=== PATIENT | female | born 1980 | race Caucasian/White ===

== ENCOUNTER 2017-03-20 15:13 | Emergency (ER) | payer SELFPAY ==
[2017-03-20] MEDS ORDERED: Ibuprofen 200 MG TAB ONE (17:49)
== END 2017-03-20 18:05 | disposition home or self-care (01) ==
LOC: ERS 15:13
DX: J11.1 Influenza due to unidentified influenza virus with other respiratory manifestations (principal); E11.9 Type 2 diabetes mellitus without complications
CPT/HCPCS: 99283

== ENCOUNTER 2017-03-24 06:39 | Emergency (ER) | payer SELFPAY ==
--- NOTE | 2017-03-24 08:12 | RAD ---
TWO VIEW CHEST SERIES: INDICATIONS: Chest pain. Recent diagnosis of flu. COMPARISON: 06/02/2014 FINDINGS: The lungs are clear. No effusion or pneumothorax. The cardiac silhouette is within normal limits in size. IMPRESSION: No focal consolidation. POS: [facility]
== END 2017-03-24 07:39 | disposition home or self-care (01) ==
LOC: ERS 06:39
DX: J11.1 Influenza due to unidentified influenza virus with other respiratory manifestations (principal); I10 Essential (primary) hypertension; E11.9 Type 2 diabetes mellitus without complications; Z79.84 Long term (current) use of oral hypoglycemic drugs
CPT/HCPCS: 71046; 93005

== ENCOUNTER 2022-04-29 14:02 | Inpatient (IN) | payer BC, SELFPAY ==
[~2022-04-29 14:02] MED LIST: Iopamidol-370 76% 500 ML 1 ML ONE
[2022-04-29] MEDS ORDERED: Ondansetron PF 4 MG/2 ML Vial ONE (14:48)
[2022-04-29] MEDS ORDERED: Acetaminophen 500 MG TAB ONE (14:48)
[2022-04-29 14:59] LABS: Hemoglobin 12.7 g/dL (12.0-16.0); Mean Corpuscular HGB CONC 33.7 g/dL (32.0-36.0); Mean Corpuscular Hemoglobin 31.1 pg (27.0-31.0); Mean Corpuscular Volume 92.2 fl (78.0-98.0); Mean Platelet Volume 7.4 fL (7.4-10.4); Platelet Count 327 10x3/uL (130-400); RBC Distribution Width 11.2 % (11.5-14.5); Red Blood Cell (RBC) Count 4.08 mill/uL (4.20-5.40); White Blood Cell (WBC) Count 15.7 10x3/uL (4.8-10.8)
[2022-04-29 14:59] LABS: Bacteria/HPF 2+ HPF (None Seen); Bilirubin Negative (Negative); Blood, Urine 3+ (Negative); Glucose, Urine (Dipstick) Greater than 1000 mg/dL (Negative); Ketone, Urine 40 mg/dL (Negative); Leukocyte 500 Leu/uL (Negative); Nitrite 1+ (Negative); Protein, Urine (Dipstick) 300 mg/dL (Neg-Trace); Specific Gravity, Urine 1.023 (1.002-1.036); Squamous Epithelial 0-3 HPF (0-3); Urobilinogen Normal mg/dL (Less than 2); WBC/HPF Greater than 50 HPF (0-3)
[2022-04-29 15:02] LABS: Clarity Turbid (Clear)
[2022-04-29 15:09] LABS: ALT (SGPT) 26 U/L (8-55); AST (SGOT) 33 U/L (5-34); Albumin 3.6 g/dL (3.5-5.0); Alkaline Phosphatase 119 U/L (40-110); Anion Gap 16 mmol/L (10-20); BUN (Urea Nitrogen) 10 mg/dL (7.0-18.7); Bilirubin, Total 1.3 mg/dL (0.2-1.2); Calc. Creatinine Clearance 0 mL/min (70-130); Calcium 8.8 mg/dL (7.8-10.44); Carbon Dioxide 23 mmol/L (22-29); Chloride 94 mmol/L (98-107); Estimated GFR 83; Globulin 4.1 g/dL (2.4-3.5); Glucose 320 mg/dL (70-105); Lipase 19 U/L (8-78); Potassium 3.2 mmol/L (3.5-5.1); Protein, Total 7.7 g/dL (6.0-8.3); Sodium 130 mmol/L (136-145)
[2022-04-29 15:15] LABS: Band 10 % (5-11); Lymphocytes 10 % (21-51); MDiff Complete? YES; Monocytes 8 % (0-10); Neutrophil 72 % (42-75); Platelet Morphology Comment Appears Adequate; Polychromasia SLIGHT = 2-3 cells (100X) (0-2/hpf)
[2022-04-29 15:32] LABS: SARS-CoV-2 NAA Rapid Test Not Detected (NotDetected)
[2022-04-29] MEDS ORDERED: cefTRIAXone\\ROCEPHIN 2 GM VIAL ONE (15:43)
[2022-04-29] MEDS ORDERED: Potassium Chloride 20 MEQ TAB ONE (16:00)
[2022-04-29] MEDS ORDERED: Vancomycin 1.5 GRAM/300 ML BAG 1.5 GM in Premix Bag 1 BAG IVPB SCH (16:30)
[2022-04-29 16:46] LABS: Pregnancy Test - Urine (BHCG) Negative (Negative); Pregu Control Background? CLEAR/WHITE (CLR/WHITE); Pregu Control Bar Appear? YES (CONTROL BAR); Specific Gravity 1.023 (1.002-1.036)
[2022-04-29] MEDS ORDERED: Ondansetron PF 4 MG/2 ML Vial IVP PRN ×2 (18:36→19:00)
[2022-04-29] MEDS ORDERED: Ondansetron ODT 4 MG TAB PO PRN (18:36)
[2022-04-29] MEDS ORDERED: Acetaminophen 650 MG Suppository PR PRN (18:36)
[2022-04-29] MEDS ORDERED: Dextrose 5% in Water 1,000 ML IV PRN (18:41)
[2022-04-29] MEDS ORDERED: Dextrose 50% Abboject 50 ML SYRINGE SLOW IVP PRN (18:41)
[2022-04-29] MEDS ORDERED: Benzonatate 100 MG CAP PO PRN (18:42)
[2022-04-29] MEDS ORDERED: Sodium Chloride 0.9% 1,000 ML IV SCH ×2 (18:45→19:00)
[2022-04-29] MEDS ORDERED: Electrolyte Replacement Protocol 1 EACH FS SCH (18:45)
[2022-04-29] MEDS ORDERED: Acetaminophen 325 MG TAB PO PRN (19:00)
[2022-04-29] MEDS ORDERED: Ondansetron ODT 4 MG TAB SL PRN (19:00)
[2022-04-29] MEDS: Acetaminophen 325 MG TAB PO PRN (19:30)
[2022-04-29 19:47] VITALS: BMI 50.8
[2022-04-29] MEDS: Famotidine/PF 20 mg/2ml Vial SLOW IVP SCH (20:40)
[2022-04-29] MEDS: HumaLOG 300 UNITS/3 ML VIAL SC PRN (20:41)
[2022-04-29] MEDS ORDERED: Vancomycin HCl 750 MG in Sodium Chloride 0.9% 250 ML 250 ML IVPB SCH (21:00)
[2022-04-29] MEDS ORDERED: Ketorolac Tromethamine 30 MG/ML VIAL IVP SCH (21:30)
[2022-04-29] MEDS ORDERED: Vancomycin 1 GM in Premix Bag 1 BAG IVPB SCH (23:00)
[2022-04-29] MEDS ORDERED: Acetaminophen 500 MG TAB PO SCH (23:30)
[2022-04-30] MEDS: VANCOMYCIN 2 GRAM/500 ML BAG 2 GM in Premix Bag 1 BAG IVPB SCH ×2 (05:19→19:04)
[2022-04-30] MEDS: HumaLOG 300 UNITS/3 ML VIAL SC PRN ×4 (05:20→20:12)
[2022-04-30 05:35] LABS: Hemoglobin A1c 9.2 % (4.0-6.0)
[2022-04-30 05:39] LABS: Hemoglobin 11.5 g/dL (12.0-16.0); Mean Corpuscular HGB CONC 33.1 g/dL (32.0-36.0); Mean Corpuscular Hemoglobin 30.9 pg (27.0-31.0); Mean Corpuscular Volume 93.5 fl (78.0-98.0); Mean Platelet Volume 7.8 fL (7.4-10.4); Platelet Count 266 10x3/uL (130-400); RBC Distribution Width 11.3 % (11.5-14.5); Red Blood Cell (RBC) Count 3.73 mill/uL (4.20-5.40); White Blood Cell (WBC) Count 12.3 10x3/uL (4.8-10.8)
[2022-04-30 06:00] LABS: Anion Gap 14 mmol/L (10-20); BUN (Urea Nitrogen) 13 mg/dL (7.0-18.7); Calc. Creatinine Clearance 194 mL/min (70-130); Calcium 8.4 mg/dL (7.8-10.44); Carbon Dioxide 24 mmol/L (22-29); Cardiac Risk 7.3 (Less than 4.5); Chloride 101 mmol/L (98-107); Cholesterol 139 mg/dl (< 200 Desired); Estimated GFR 101; Glucose 281 mg/dL (70-105); HDL Cholesterol 19 mg/dL (>60 Neg Risk); LDL Cholesterol, Calculated 94 mg/dL; Potassium 3.7 mmol/L (3.5-5.1); Sodium 135 mmol/L (136-145); Triglycerides 132 mg/dL (Less than 150)
[2022-04-30 06:06] LABS: Band 22 % (5-11); Lymphocytes 19 % (21-51); MDiff Complete? YES; Monocytes 5 % (0-10); Neutrophil 54 % (42-75)
[2022-04-30] MEDS: Acetaminophen 325 MG TAB PO PRN ×4 (07:37→19:48)
[2022-04-30] MEDS ORDERED: Magnesium 2 GM/50 ML(in water) 2 GM in Premix Bag 1 BAG IVPB SCH (08:00)
[2022-04-30] MEDS: Famotidine/PF 20 mg/2ml Vial SLOW IVP SCH ×2 (08:21→19:48)
[2022-04-30] MEDS: Hydrochlorothiazide 25 MG TAB PO SCH (08:21)
[2022-04-30] MEDS ORDERED: FLU VACC QS2022-23(6MOS UP)/PF 60 MCG/0.5 ML SYRINGE IM ONE (09:00)
[2022-04-30] MEDS: Guaifenesin DM 100-10/5 ML UDCUP PO PRN (13:37)
[2022-04-30] MEDS ORDERED: cefTRIAXone\\ROCEPHIN 1 GM in Sodium Chloride 0.9% 100 ML IVPB SCH (18:45)
[2022-05-01] MEDS: Guaifenesin DM 100-10/5 ML UDCUP PO PRN ×2 (00:14→06:19)
[2022-05-01 06:04] LABS: Vancomycin, Trough 10.4 ug/mL
[2022-05-01] MEDS: VANCOMYCIN 2 GRAM/500 ML BAG 2 GM in Premix Bag 1 BAG IVPB SCH (06:16)
[2022-05-01] MEDS: HumaLOG 300 UNITS/3 ML VIAL SC PRN (06:16)
[2022-05-01] MEDS: Hydrochlorothiazide 25 MG TAB PO SCH (08:44)
[2022-05-01] MEDS: Famotidine/PF 20 mg/2ml Vial SLOW IVP SCH (08:44)
[2022-05-01 11:37] VITALS: BP 150/86; TEMP 98.5
[2022-05-01] MEDS ORDERED: VANCOMYCIN 2 GRAM/500 ML BAG 2 GM in Premix Bag 1 BAG IVPB SCH (14:00)
== END 2022-05-01 11:48 | disposition home or self-care (01) | DRG 872 ==
LOC: ERS 14:02 → T4-A 17:13
PROVIDERS: ADMIT Internal Medicine; ATTEND Internal Medicine
DX: A41.51 Sepsis due to Escherichia coli [E. coli] (principal); N39.0 Urinary tract infection, site not specified; E87.1 Hypo-osmolality and hyponatremia; Z68.43 Body mass index [BMI] 50.0-59.9, adult; J06.9 Acute upper respiratory infection, unspecified; F41.9 Anxiety disorder, unspecified; E11.65 Type 2 diabetes mellitus with hyperglycemia; E66.01 Morbid (severe) obesity due to excess calories; E87.6 Hypokalemia; I10 Essential (primary) hypertension; Z91.013 Allergy to seafood; Z90.89 Acquired absence of other organs; Z98.890 Other specified postprocedural states; Z83.3 Family history of diabetes mellitus; Z82.49 Family history of ischemic heart disease and other diseases of the circulatory system
CPT/HCPCS: 36415; 36416; 71045; 71275; 76770; 80048; 80053; 80061; 80202; 81003; 81015; 81025; 83036; 83605; 83690; 83735; 84443; 84484; 85025; 85379; 87040; 87077; 87081; 87086; 87186; 87430; 93005; 96365; 96366; 96367; 96375; J0696; J1650; J1815; J1885; J2405; J3370; J3475; J3490; J7050; Q9967; S0028